=== PATIENT | male | born 1985 | race Two or more races ===

== ENCOUNTER 2021-12-09 16:35 | Emergency (ER) | payer OTHER ==
[~2021-12-09] VITALS: Ht 175.3 cm; Wt 74.8 kg
[2021-12-09 16:36] VITALS: BP 131/100
[2021-12-09] MEDS ORDERED: KETOROLAC TROMETH 30 MG/ML 1ML VIAL IM ONE (19:00)
== END 2021-12-09 22:04 | disposition home or self-care (01) ==
LOC: ER 16:35
DX: G89.29 Other chronic pain (principal); M25.551 Pain in right hip; I10 Essential (primary) hypertension
CPT/HCPCS: 73502; 96372; 99283; J1885